=== PATIENT | male | born 1980 | race Caucasian/White ===

== ENCOUNTER 2018-08-21 13:19 | Inpatient (IN) | payer MEDICAID ==
[2018-08-21 13:25] VITALS: BMI 23.7
[2018-08-21 14:07] LABS: BASO # 0.02 K/mm3 (0.0-2.0); BASO % 0.2 % (0.0-3.0); EOS # 0.1 (0.0-0.7); EOS % 0.9 % (1.5-5.0); HEMOGLOBIN 14.6 g/dL (14.0-18.0); LYMPH # 2.4 (1.2-3.4); LYMPH % 21.1 % (22.0-35.0); MEAN CELL VOLUME 95.7 fl (80.0-105.0); MEAN CORPUSCULAR HEMOGLOBIN 31.7 pg (25.0-35.0); MEAN CORPUSCULAR HGB CONC 33.1 g/dl (31.0-37.0); MEAN PLATELET VOLUME 10.3 fl (7.0-11.0); MONO # 1.3 (0.1-0.6); MONO % 11.4 % (1.0-6.0); RBC 4.61 10^6/uL (3.5-6.1); RED CELL DISTRIBUTION WIDTH 12.8 % (11.5-14.5); WHITE BLOOD COUNT 11.3 10^3/uL (4.5-11.0)
[2018-08-21 14:16] LABS: ALB/GLOB RATIO 1.2 (1.1-1.8); ALBUMIN 4.8 g/dL (3.0-4.8); ALT/SGPT 45 U/L (7-56); AST/SGOT 48 U/L (17-59); BLOOD UREA NITROGEN 9 mg/dL (7-21); CALCIUM 9.7 mg/dL (8.4-10.5); GFR NON-AFRICAN AMERICAN > 60
--- NOTE | 2018-08-21 14:26 | CT ---
Date of service: 08/21/2018 PROCEDURE: CT HEAD WITHOUT CONTRAST. HISTORY: ? new onset seizure COMPARISON: None available. TECHNIQUE: Axial computed tomography images were obtained through the head/brain without intravenous contrast. Radiation dose: Total exam DLP = 976.31 mGy-cm. This CT exam was performed using one or more of the following dose reduction techniques: Automated exposure control, adjustment of the mA and/or kV according to patient size, and/or use of iterative reconstruction technique. FINDINGS: HEMORRHAGE: No intracranial hemorrhage. BRAIN: No mass effect or edema. No atrophy or chronic microvascular ischemic changes. VENTRICLES: Unremarkable. No hydrocephalus. CALVARIUM: Unremarkable. PARANASAL SINUSES: Unremarkable as visualized. No significant inflammatory changes. MASTOID AIR CELLS: Unremarkable as visualized. No inflammatory changes. OTHER FINDINGS: None. IMPRESSION: No acute findings
--- NOTE | 2018-08-21 14:30 | ED PDOC ---
Arrival/HPI - General Chief Complaint: Seizure Historian: Patient, Family - History of Present Illness Narrative History of Present Illness (Text): 08/21/18 13:40 38 year old male, with no significant past medical history, presents to the emergency department accompanied by family for evaluation of 2 witnessed seizure at home. Patient had a seizure and landed on top of this toilet which broke. Patient here in the ER is A&Ox3. Patient denies any history of seizure in the past or any family history of seizure. Patient denies any recent travel. Patient denies any pain, fever, chills, chest pain, shortness of breath, nausea, vomiting, diarrhea, urinary incontinence, urinary symptoms, back pain, neck pain, headache, dizziness, or any other complaints. Symptom Onset: Sudden Activities at Onset: Light Context: Home Past Medical History - Provider Review Nursing Documentation Reviewed: Yes - Psychiatric Hx Substance Use: Yes Family/Social History - Physician Review Nursing Documentation Reviewed: Yes Family/Social History: No Known Family HX Smoking Status: Never Smoked Hx Alcohol Use: Yes Frequency of alcohol use: Socially Hx Substance Use: Yes Substance used: marijuana Allergies/Home Meds Allergies/Adverse Reactions: Allergies No Known Allergies Allergy (Verified 08/21/18 13:24) Home Medications: Home Meds Medication Instructions Recorded Confirmed No Known Home Med 08/21/18 08/21/18 Review of Systems - Physician Review All systems were reviewed & negative as marked: Yes - Review of Systems Constitutional: absent: Fevers, Other (chills) Respiratory: absent: SOB Cardiovascular: absent: Chest Pain Gastrointestinal: absent: Diarrhea, Nausea, Vomiting Genitourinary Male: absent: Dysuria, Frequency, Hematuria, Other (urinary incontinence) Musculoskeletal: absent: Back Pain, Neck Pain Neurological: Seizure. absent: Headache, Dizziness Physical Exam Vital Signs Reviewed: Yes Vital Signs Temp Pulse Resp BP Pulse Ox 08/21/18 13:25 98.7 F 92 H 18 136/68 98 Temperature: Afebrile Blood Pressure: Normal Pulse: Regular Respiratory Rate: Normal Appearance: Positive for: Well-Appearing, Non-Toxic, Comfortable Pain Distress: None Mental Status: Positive for: Alert and Oriented X 3 Finger Stick Blood Glucose: 154 - Systems Exam Head: Present: Atraumatic, Normocephalic Pupils: Present: PERRL Extroacular Muscles: Present: EOMI Conjunctiva: Present: Normal Mouth: Present: Moist Mucous Membranes, Other (small abrasion to the tip of tongue) Neck: Present: Normal Range of Motion Respiratory/Chest: Present: Clear to Auscultation, Good Air Exchange. No: Respiratory Distress, Accessory Muscle Use Cardiovascular: Present: Regular Rate and Rhythm, Normal S1, S2. No: Murmurs Abdomen: No: Tenderness, Distention, Peritoneal Signs Back: Present: Normal Inspection Upper Extremity: Present: Normal Inspection. No: Cyanosis, Edema Lower Extremity: Present: Normal Inspection. No: Edema Neurological: Present: GCS=15, Speech Normal Skin: Present: Warm, Dry, Normal Color. No: Rashes Psychiatric: Present: Alert, Oriented x 3, Normal Insight, Normal Concentration Medical Decision Making ED Course and Treatment: 08/21/18 13:40 Impression: 38 year old male presents for evaluation s/p 2 witnessed seizure at home. Patient denies any history of seizure in the past or any family history of seizure. Plan: -- CT Head w/o contrast -- Labs -- Urinalysis -- Reassess and disposition Progress Notes: EKG shows sinus at 92 BPM with normal axis and normal intervals. Interpreted by me. CT head without contrast Dictated by: Michael Clark MD Date Signed: 08/21/181421 Impression: No acute findings 08/21/18 15:20 Patient had a tonic clonic seizure in bed. Patient did not fall to ground. Ativan was given with resolution of seizure. 08/21/18 15:[address] Gonzales neurologist who recommends loading patient with Keppra and to order an MRI of brain w/ contrast. 08/21/18 15:[address] Delacruz who is aware and agrees with the plan. Accepts patient into hospitalist service. - Lab Interpretations Lab Results: Total Bilirubin 0.5 mg/dL (0.2-1.3) 08/21/18 13:30 AST 48 U/L (17-59) 08/21/18 13:30 ALT 45 U/L (7-56) 08/21/18 13:30 Alkaline Phosphatase 78 U/L (38-126) 08/21/18 13:30 Total Protein 8.7 g/dL (5.8-8.3) H 08/21/18 13:30 Albumin 4.8 g/dL (3.0-4.8) 08/21/18 13:30 Globulin 3.9 gm/dL 08/21/18 13:30 Albumin/Globulin Ratio 1.2 (1.1-1.8) 08/21/18 13:30 I have reviewed the lab results: Yes - RAD Interpretation Radiology Orders: 08/21/18 13:50 HEAD W/O CONTRAST [CT] Stat Timber Skidder: Radiologist - Scribe Statement The provider has reviewed the documentation as recorded by the Linda Vitale Provider Scribe Attestation: All medical record entries made by the Linda were at my direction and personally dictated by me. I have reviewed the chart and agree that the record accurately reflects my personal performance of the history, physical exam, medical decision making, and the department course for this patient. I have also personally directed, reviewed, and agree with the discharge instructions and disposition. Disposition/Present on Arrival - Present on Arrival Any Indicators Present on Arrival: No History of DVT/PE: No History of Uncontrolled Diabetes: No Urinary Catheter: No History of Decub. Ulcer: No History Surgical Site Infection Following: None - Disposition Have Diagnosis and Disposition been Completed?: Yes Diagnosis: Witnessed seizure-like activity Disposition: HOSPITALIZED Disposition Time: 15:15 Condition: FAIR
[2018-08-21 14:57] LABS: PH,URINE 6.5 (4.7-8.0); URINE BILIRUBIN NEGATIVE (NEGATIVE); URINE BLOOD NEGATIVE (NEGATIVE); URINE GLUCOSE (UA) NEGATIVE (NEGATIVE); URINE LEUKOCYTE ESTERASE NEGATIVE Leu/uL (NEGATIVE); URINE PROTEIN TRACE mg/dL (<30 mg/dL); URINE UROBILINOGEN 0.2 E.U./dL (<1 E.U./dL)
[2018-08-21 15:01] LABS: URINE APPEARANCE CLEAR (CLEAR); URINE COLOR YELLOW (YELLOW)
[2018-08-21 15:04] LABS: URINE BACTERIA FEW /hpf; URINE WBC 0 - 2 /hpf (0-6)
[2018-08-21] MEDS ORDERED: levETIRAcetam 1,000 MG in Sodium Chloride 0.9% 100 ML IVPB STA (15:27)
[2018-08-21] MEDS ORDERED: levETIRAcetam 1000mg/100ml NS 100 ML IV ONE (15:30)
[2018-08-21 15:47] LABS: BARBITURATES, UR NEGATIVE (NEGATIVE); BENZODIAZEPINES, UR NEGATIVE (NEGATIVE); OPIATES, UR NEGATIVE (NEGATIVE); PHENCYCLIDINE, UR NEGATIVE (NEGATIVE)
--- NOTE | 2018-08-21 16:06 | CP.PCM.HP ---
<Ruthann Neves - Last Filed: 08/21/18 17:41> History of Present Illness - History of Present Illness History of Present Illness: Resident History & Physical for Hospitalist Service Patient is a 38 year old male with no significant past medical history presenting with chief complaint of seizures. History was obtained from medical records and at bedside due to patient's altered mental status. Per patient was not complaining of any symptoms throughout the morning. In the afternoon, patient was noted to have tonic movements before falling backwards and losing consciousness. Upon regaining consciousness, patient exhibited slurred speech and was unable to recall what had happened. Patient subsequently had another seizure of same nature before being brought to ED. In the ED patient had third seizure and was given 4 mg Ativan and 1 gram of Keppra. Patient has no previous history of seizures and does not take any medications at home. Last followup with PMD was a year prior and there were no medical concerns reported at that time. PMH: none PSH: none SHx: denies alcohol, cigar and marijuana use for past 15 years FHx: HTN Allergies: NKDA PMD: [facility] Present on Admission - Present on Admission Any Indicators Present on Admission: No Review of Systems - Review of Systems All systems: reviewed and no additional remarkable complaints except (as stated in HPI) Past Patient History - Past Social History Smoking Status: Never Smoked - PSYCHIATRIC Hx Substance Use: Yes - SURGICAL HISTORY Hx Surgeries: No Meds Allergies/Adverse Reactions: Allergies Allergy/AdvReac Type Severity Reaction Status Date / Time No Known Allergies Allergy Verified 08/21/18 21:47 Physical Exam - Constitutional Appears: Non-toxic, No Acute Distress - Head Exam Head Exam: ATRAUMATIC, NORMOCEPHALIC - Eye Exam Eye Exam: EOMI, Normal appearance, PERRL - ENT Exam ENT Exam: Mucous Membranes Moist - Respiratory Exam Respiratory Exam: Clear to Auscultation Bilateral, NORMAL BREATHING PATTERN. absent: Accessory Muscle Use, Rales, Rhonchi, Wheezes, Respiratory Distress - Cardiovascular Exam Cardiovascular Exam: Tachycardia, RRR, +S1, +S2. absent: Systolic Murmur - GI/Abdominal Exam GI & Abdominal Exam: Normal Bowel Sounds, Soft. absent: Distended, Firm, Guarding, Rebound, Rigid, Tenderness - Extremities Exam Extremities exam: Positive for: normal capillary refill, normal inspection, pedal pulses present. Negative for: pedal edema, tenderness - Neurological Exam Neurological exam: Altered - Skin Skin Exam: Dry, Intact, Normal Color, Warm Results - Vital Signs Recent Vital Signs: Last Vital Signs Temp 98.7 F 08/21/18 13:25 Pulse 107 H 08/21/18 15:33 Resp 20 08/21/18 15:33 BP 114/69 08/21/18 15:33 Pulse Ox 99 08/21/18 15:33 - Labs Result Diagrams: 08/21/18 13:30 08/21/18 13:30 Labs: Laboratory Results - last 24 hr 08/21/18 08/21/18 08/21/18 13:30 13:30 14:30 WBC 11.3 H RBC 4.61 Hgb 14.6 Hct 44.1 MCV 95.7 MCH 31.7 MCHC 33.1 RDW 12.8 Plt Count 276 MPV 10.3 Neut % (Auto) 66.4 Lymph % (Auto) 21.1 L [place] % (Auto) 11.4 H Eos % (Auto) 0.9 L Baso % (Auto) 0.2 Lymph # (Auto) 2.4 [place] # (Auto) 1.3 H Eos # (Auto) 0.1 Baso # (Auto) 0.02 Absolute Neuts (auto) 7.49 H Sodium 139 Potassium 3.8 Chloride 100 Carbon Dioxide 23 Anion Gap 20 BUN 9 Creatinine 0.9 Est GFR ( Amer) > 60 Est GFR (Non-Af Amer) > 60 Random Glucose 148 H Calcium 9.7 Total Bilirubin 0.5 AST 48 ALT 45 Alkaline Phosphatase 78 Total Protein 8.7 H Albumin 4.8 Globulin 3.9 Albumin/Globulin Ratio 1.2 Urine Color Urine Appearance Urine pH Ur Specific [place] Urine Protein Urine Glucose (UA) Urine Ketones Urine Blood Urine Nitrate Urine Bilirubin Urine Urobilinogen Ur Leukocyte Esterase Urine RBC Urine WBC Ur Epithelial Cells Urine Bacteria Urine Opiates Screen Negative Urine Methadone Screen Negative Ur Barbiturates Screen Negative Ur Phencyclidine Scrn Negative Ur Amphetamines Screen Negative U Benzodiazepines Scrn Negative U Oth Cocaine Metabols Negative U Cannabinoids Screen Positive H 08/21/18 14:30 WBC RBC Hgb Hct MCV MCH MCHC RDW Plt Count MPV Neut % (Auto) Lymph % (Auto) [place] % (Auto) Eos % (Auto) Baso % (Auto) Lymph # (Auto) [place] # (Auto) Eos # (Auto) Baso # (Auto) Absolute Neuts (auto) Sodium Potassium Chloride Carbon Dioxide Anion Gap BUN Creatinine Est GFR ( Amer) Est GFR (Non-Af Amer) Random Glucose Calcium Total Bilirubin AST ALT Alkaline Phosphatase Total Protein Albumin Globulin Albumin/Globulin Ratio Urine Color Yellow Urine Appearance Clear Urine pH 6.5 Ur Specific [place] 1.025 Urine Protein Trace H Urine Glucose (UA) Negative Urine Ketones Negative Urine Blood Negative Urine Nitrate Negative Urine Bilirubin Negative Urine Urobilinogen 0.2 Ur Leukocyte Esterase Negative Urine RBC None Urine WBC 0 - 2 Ur Epithelial Cells None Urine Bacteria Few Urine Opiates Screen Urine Methadone Screen Ur Barbiturates Screen Ur Phencyclidine Scrn Ur Amphetamines Screen U Benzodiazepines Scrn U Oth Cocaine Metabols U Cannabinoids Screen Assessment & Plan - Assessment and Plan (Free Text) Assessment: Patient is a 38 year old male with no significant past medical history presenting with chief complaint of seizures. Plan: Seizures - s/p ativan and keppra in ED - Head CT shows no acute findings - case discussed with neurology Dr. Gonzales - continue Keppra 500 mg IV Q12 as per neurology recs - Ativan 2 mg IVP Q3H PRN - NPO - Aspiration, seizure precautions - followup brain MRI - will keep low threshold for intubating patient and transferring to ICU PPX - Yesenia Madison PGY-1 - Date & Time Date: 08/21/18 Time: 16:06 <João Delacruz - Last Filed: 08/22/18 15:09> Results - Vital Signs Recent Vital Signs: Last Vital Signs Temp 98.3 F 08/22/18 06:00 Pulse 86 08/22/18 14:00 Resp 18 08/22/18 09:00 BP 109/66 08/22/18 09:00 Pulse Ox 97 08/22/18 09:00 - Labs Result Diagrams: 08/22/18 06:20 08/22/18 06:20 Labs: Laboratory Results - last 24 hr 08/21/18 08/21/18 08/21/18 13:32 14:30 14:30 WBC RBC Hgb Hct MCV MCH MCHC RDW Plt Count MPV Neut % (Auto) Lymph % (Auto) [place] % (Auto) Eos % (Auto) Baso % (Auto) Lymph # (Auto) [place] # (Auto) Eos # (Auto) Baso # (Auto) Absolute Neuts (auto) Sodium Potassium Chloride Carbon Dioxide Anion Gap BUN Creatinine Est GFR ( Amer) Est GFR (Non-Af Amer) POC Glucose (mg/dL) 154 H Random Glucose Hemoglobin A1c Calcium Phosphorus Magnesium Total Bilirubin AST ALT Alkaline Phosphatase Total Creatine Kinase Total Protein Albumin Globulin Albumin/Globulin Ratio Triglycerides Cholesterol LDL Cholesterol Direct HDL Cholesterol TSH 3rd Generation Urine Color Yellow Urine Appearance Clear Urine pH 6.5 Ur Specific [place] 1.025 Urine Protein Trace H Urine Glucose (UA) Negative Urine Ketones Negative Urine Blood Negative Urine Nitrate Negative Urine Bilirubin Negative Urine Urobilinogen 0.2 Ur Leukocyte Esterase Negative Urine RBC None Urine WBC 0 - 2 Ur Epithelial Cells None Urine Bacteria Few Urine Opiates Screen Negative Urine Methadone Screen Negative Ur Barbiturates Screen Negative Ur Phencyclidine Scrn Negative Ur Amphetamines Screen Negative U Benzodiazepines Scrn Negative U Oth Cocaine Metabols Negative U Cannabinoids Screen Positive H Alcohol, Quantitative 08/21/18 08/21/18 08/21/18 18:00 18:00 18:00 WBC RBC Hgb Hct MCV MCH MCHC RDW Plt Count MPV Neut % (Auto) Lymph % (Auto) [place] % (Auto) Eos % (Auto) Baso % (Auto) Lymph # (Auto) [place] # (Auto) Eos # (Auto) Baso # (Auto) Absolute Neuts (auto) Sodium Potassium Chloride Carbon Dioxide Anion Gap BUN Creatinine Est GFR ( Amer) Est GFR (Non-Af Amer) POC Glucose (mg/dL) Random Glucose Hemoglobin A1c 5.8 Calcium Phosphorus 3.1 Magnesium 2.0 Total Bilirubin AST ALT Alkaline Phosphatase Total Creatine Kinase 105 Total Protein Albumin Globulin Albumin/Globulin Ratio Triglycerides Cholesterol LDL Cholesterol Direct HDL Cholesterol TSH 3rd Generation 1.69 Urine Color Urine Appearance Urine pH Ur Specific [place] Urine Protein Urine Glucose (UA) Urine Ketones Urine Blood Urine Nitrate Urine Bilirubin Urine Urobilinogen Ur Leukocyte Esterase Urine RBC Urine WBC Ur Epithelial Cells Urine Bacteria Urine Opiates Screen Urine Methadone Screen Ur Barbiturates Screen Ur Phencyclidine Scrn Ur Amphetamines Screen U Benzodiazepines Scrn U Oth Cocaine Metabols U Cannabinoids Screen Alcohol, Quantitative < 10 08/22/18 08/22/18 06:20 06:20 WBC 13.5 H RBC 4.14 Hgb 12.7 L Hct 38.9 L MCV 94.0 MCH 30.7 MCHC 32.6 RDW 13.0 Plt Count 231 MPV 10.1 Neut % (Auto) 76.1 H Lymph % (Auto) 11.9 L [place] % (Auto) 11.4 H Eos % (Auto) 0.4 L Baso % (Auto) 0.2 Lymph # (Auto) 1.6 [place] # (Auto) 1.5 H Eos # (Auto) 0.1 Baso # (Auto) 0.03 Absolute Neuts (auto) 10.26 H Sodium 140 Potassium 3.5 L Chloride 108 H Carbon Dioxide 25 Anion Gap 11 BUN 10 Creatinine 0.8 Est GFR ( Amer) > 60 Est GFR (Non-Af Amer) > 60 POC Glucose (mg/dL) Random Glucose 89 Hemoglobin A1c Calcium 8.8 Phosphorus 3.1 Magnesium 2.1 Total Bilirubin 0.7 AST 50 ALT 53 Alkaline Phosphatase 61 Total Creatine Kinase Total Protein 7.1 Albumin 3.7 Globulin 3.3 Albumin/Globulin Ratio 1.1 Triglycerides 43 Cholesterol 132 LDL Cholesterol Direct 101 HDL Cholesterol 21 L TSH 3rd Generation Urine Color Urine Appearance Urine pH Ur Specific [place] Urine Protein Urine Glucose (UA) Urine Ketones Urine Blood Urine Nitrate Urine Bilirubin Urine Urobilinogen Ur Leukocyte Esterase Urine RBC Urine WBC Ur Epithelial Cells Urine Bacteria Urine Opiates Screen Urine Methadone Screen Ur Barbiturates Screen Ur Phencyclidine Scrn Ur Amphetamines Screen U Benzodiazepines Scrn U Oth Cocaine Metabols U Cannabinoids Screen Alcohol, Quantitative Attending/Attestation - Attestation I have personally seen and examined this patient.: Yes I have fully participated in the care of the patient.: Yes I have reviewed all pertinent clinical information: Yes Notes (Text): 08/22/18 15:00 Attending note; Patient seen and examined with resident in ER. Patient is sedated with IV Ativan. Patient's by the bedside. Not in any acute distress. Patient is moving all extremities. Pupils equal and reactive. Patient is a 38 year old male with no significant past medical history presenting with chief complaint of seizures. History was obtained from medical records and at bedside due to patient's altered mental status. 1. Recurrent seizures; according to the family patient has No history of seizures. Etiology unknown. CT head is negative. Currently on IV Keppra. Started on IV Ativan as needed. Patient is currently sedated with IV Ativan. No focal deficit noted. Monitor closely. 2. Urine drug screen is positive for marijuana. drug Abuse cessation is strongly advised. 3. Neurology Evaluation appreciated. MRI ordered. Video EEG recommended. Monitor closely. Patient will be referred to PMD at [facility].
--- NOTE | 2018-08-21 18:26 | CP.PCM.CON ---
History of Present Illness - History of Present Illness History of Present Illness: Neurology consult dictated. 38 yr old male with no past medical history of epilepsy, who presented today with two discrete, preceded by aura, generalized tonic clonic siezures that were witnessed by staff. THere was no alcohol or drug use, or sleep deprivation noted prior to this event. No prior histoyr. NO history of hemorrhage or stroke. Patient was loaded with Keppra and MRI Brain with maribell ordered. Plan: 1. MRi Brain with maribell 2. VEEG after MRI 3. Continue Keppra at 500 mg bid THank you Neurology Past Patient History - Past Social History Smoking Status: Never Smoked - PSYCHIATRIC Hx Substance Use: Yes - SURGICAL HISTORY Hx Surgeries: No Meds Allergies/Adverse Reactions: Allergies Allergy/AdvReac Type Severity Reaction Status Date / Time No Known Allergies Allergy Verified 08/21/18 13:24 - Medications Medications: Current Medications Levetiracetam (Keppra 500mg Ivpb) 500 mg in 100 mls @ 400 mls/hr IVPB Q12 LAURA Sodium Chloride (Sodium Chloride 0.9%) 1,000 mls @ 115 mls/hr IV .[id number] LAURA Lorazepam (Ativan) 2 mg IVP Q3H PRN; Protocol PRN Reason: Seizure activity Ondansetron HCl (Zofran Inj) 4 mg IVP Q4H PRN PRN Reason: Nausea/Vomiting Pantoprazole Sodium (Protonix Inj) 40 mg IVP DAILY LAURA Results - Vital Signs Recent Vital Signs: Last Vital Signs Temp 98.7 F 08/21/18 13:25 Pulse 98 H 08/21/18 17:00 Resp 18 08/21/18 17:00 BP 129/88 08/21/18 17:00 Pulse Ox 99 08/21/18 17:00 - Labs Result Diagrams: 08/21/18 13:30 08/21/18 13:30 Labs: Laboratory Results - last 24 hr 08/21/18 08/21/18 08/21/18 13:30 13:30 13:32 WBC 11.3 H RBC 4.61 Hgb 14.6 Hct 44.1 MCV 95.7 MCH 31.7 MCHC 33.1 RDW 12.8 Plt Count 276 MPV 10.3 Neut % (Auto) 66.4 Lymph % (Auto) 21.1 L [place] % (Auto) 11.4 H Eos % (Auto) 0.9 L Baso % (Auto) 0.2 Lymph # (Auto) 2.4 [place] # (Auto) 1.3 H Eos # (Auto) 0.1 Baso # (Auto) 0.02 Absolute Neuts (auto) 7.49 H Sodium 139 Potassium 3.8 Chloride 100 Carbon Dioxide 23 Anion Gap 20 BUN 9 Creatinine 0.9 Est GFR ( Amer) > 60 Est GFR (Non-Af Amer) > 60 POC Glucose (mg/dL) 154 H Random Glucose 148 H Calcium 9.7 Total Bilirubin 0.5 AST 48 ALT 45 Alkaline Phosphatase 78 Total Protein 8.7 H Albumin 4.8 Globulin 3.9 Albumin/Globulin Ratio 1.2 Urine Color Urine Appearance Urine pH Ur Specific [place] Urine Protein Urine Glucose (UA) Urine Ketones Urine Blood Urine Nitrate Urine Bilirubin Urine Urobilinogen Ur Leukocyte Esterase Urine RBC Urine WBC Ur Epithelial Cells Urine Bacteria Urine Opiates Screen Urine Methadone Screen Ur Barbiturates Screen Ur Phencyclidine Scrn Ur Amphetamines Screen U Benzodiazepines Scrn U Oth Cocaine Metabols U Cannabinoids Screen 08/21/18 08/21/18 14:30 14:30 WBC RBC Hgb Hct MCV MCH MCHC RDW Plt Count MPV Neut % (Auto) Lymph % (Auto) [place] % (Auto) Eos % (Auto) Baso % (Auto) Lymph # (Auto) [place] # (Auto) Eos # (Auto) Baso # (Auto) Absolute Neuts (auto) Sodium Potassium Chloride Carbon Dioxide Anion Gap BUN Creatinine Est GFR ( Amer) Est GFR (Non-Af Amer) POC Glucose (mg/dL) Random Glucose Calcium Total Bilirubin AST ALT Alkaline Phosphatase Total Protein Albumin Globulin Albumin/Globulin Ratio Urine Color Yellow Urine Appearance Clear Urine pH 6.5 Ur Specific [place] 1.025 Urine Protein Trace H Urine Glucose (UA) Negative Urine Ketones Negative Urine Blood Negative Urine Nitrate Negative Urine Bilirubin Negative Urine Urobilinogen 0.2 Ur Leukocyte Esterase Negative Urine RBC None Urine WBC 0 - 2 Ur Epithelial Cells None Urine Bacteria Few Urine Opiates Screen Negative Urine Methadone Screen Negative Ur Barbiturates Screen Negative Ur Phencyclidine Scrn Negative Ur Amphetamines Screen Negative U Benzodiazepines Scrn Negative U Oth Cocaine Metabols Negative U Cannabinoids Screen Positive H
[2018-08-21] MEDS: Sodium Chloride 0.9% 1,000 ML IV SCH (18:31)
[2018-08-21] MEDS: levETIRAcetam 500mg IVPB 500 MG/100 ML BAG IVPB SCH (21:44)
[2018-08-21] MEDS ORDERED: levETIRAcetam 500 MG in Sodium Chloride 0.9% 100 ML IVPB SCH (22:00)
--- NOTE | 2018-08-21 22:22 | CARD ---
APPROVED REPORT Date of service: 08/21/2018 EKG Measurement Heart [id number] <Conclusion> Normal sinus rhythm Normal ECG
[2018-08-21] MEDS ORDERED: Influenza Vaccine 60 mcg/0.5 mL SYR (4YR UP) IM ONE (22:51)
[2018-08-21] MEDS ORDERED: Pneumococcal 23-Valent Vaccine IM ONE (22:51)
[2018-08-22] MEDS: Sodium Chloride 0.9% 1,000 ML IV SCH (01:50)
--- NOTE | 2018-08-22 07:04 | CP.PCM.PN ---
<Ruthann Neves L - Last Filed: 08/22/18 13:03> Subjective - Date & Time of Evaluation Date of Evaluation: 08/22/18 Time of Evaluation: 07:02 - Subjective Subjective: Resident Progress Note for Hospitalist Service Patient examined at bedside. No acute events overnight. Patient is AAOx3, responding to questions appropriately and following commands. States he has right sided back pain and generalized weakness. Denies fevers, chills, headache, dizziness, vision or auditory changes, nausea, vomiting. Objective - Vital Signs/Intake and Output Vital Signs (last 24 hours): Temp Pulse Resp BP Pulse Ox 98.3 F 85 20 127/77 97 08/22/18 06:00 08/22/18 06:00 08/22/18 06:00 08/22/18 06:00 08/22/18 06:00 Intake and Output: 08/22/18 08/22/18 06:59 18:59 Intake Total 1380 Balance 1380 - Medications Medications: Current Medications Levetiracetam (Keppra 500mg Ivpb) 500 mg in 100 mls @ 400 mls/hr IVPB Q12 [facility] Last Admin: 08/21/18 21:44 Dose: 400 mls/hr Sodium Chloride (Sodium Chloride 0.9%) 1,000 mls @ 115 mls/hr IV .Q8H42M [facility] Last Admin: 08/22/18 01:50 Dose: Not Given Lorazepam (Ativan) 2 mg IVP Q3H PRN; Protocol PRN Reason: Seizure activity Ondansetron HCl (Zofran Inj) 4 mg IVP Q4H PRN PRN Reason: Nausea/Vomiting Pantoprazole Sodium (Protonix Inj) 40 mg IVP DAILY [facility] - Labs Labs: 08/21/18 13:30 08/21/18 13:30 - Constitutional Appears: Non-toxic, No Acute Distress - Head Exam Head Exam: ATRAUMATIC, NORMOCEPHALIC - Eye Exam Eye Exam: EOMI, Normal appearance, PERRL - ENT Exam ENT Exam: Mucous Membranes Moist Additional comments: tongue bites - Respiratory Exam Respiratory Exam: Clear to Auscultation Bilateral, NORMAL BREATHING PATTERN. absent: Accessory Muscle Use, Rales, Rhonchi, Wheezes, Respiratory Distress - Cardiovascular Exam Cardiovascular Exam: RRR, +S1, +S2. absent: Systolic Murmur - GI/Abdominal Exam GI & Abdominal Exam: Normal Bowel Sounds, Soft. absent: Distended, Firm, Guarding, Rebound, Rigid, Tenderness - Extremities Exam Extremities exam: Positive for: normal capillary refill, normal inspection, pedal pulses present. Negative for: pedal edema, tenderness - Neurological Exam Neurological exam: Alert, Oriented x3, CN II-XII intact, Muscle Strength intact - Skin Skin Exam: Dry, Intact, Normal Color, Warm Assessment and Plan - Assessment and Plan (Free Text) Assessment: Patient is a 38 year old male with no significant past medical history presenting with chief complaint of seizures. Plan: Seizures - s/p ativan and keppra in ED - Head CT shows no acute findings - case discussed with neurology Dr. Gonzales - continue Keppra 500 mg IV Q12 as per neurology recs - Ativan 2 mg IVP Q3H PRN - diet advanced - Aspiration, seizure precautions - Brain MRI unremarkable - followup VEEG - will keep low threshold for intubating patient and transferring to ICU Leukocytosis - likely reactive - afebrile - UA unremarkable Substance abuse - UDS positive for cannabinoids - alcohol level <10 - cessation counseling Hypokalemia - monitor and replete PRN Back pain - Lidoderm patch PRN - Tylenol PRN PPX - SCDs, Protonix Case reviewed with Dr. Jayme Neves PGY-1 <João Delacruz - Last Filed: 08/22/18 15:17> Objective - Vital Signs/Intake and Output Vital Signs (last 24 hours): Temp Pulse Resp BP Pulse Ox 98.3 F 86 18 109/66 97 08/22/18 06:00 08/22/18 14:00 08/22/18 09:00 08/22/18 09:00 08/22/18 09:00 Intake and Output: 08/22/18 08/22/18 06:59 18:59 Intake Total 1380 Output Total 400 Balance 980 - Medications Medications: Current Medications Acetaminophen (Tylenol 325mg Tab) 650 mg PO Q6H PRN PRN Reason: Pain, Mild (1-3) Levetiracetam (Keppra 500mg Ivpb) 500 mg in 100 mls @ 400 mls/hr IVPB Q12 [facility] Last Admin: 08/22/18 10:46 Dose: 400 mls/hr Sodium Chloride (Sodium Chloride 0.9%) 1,000 mls @ 115 mls/hr IV .Q8H42M [facility] Last Admin: 08/22/18 01:50 Dose: Not Given Lidocaine (Lidoderm) 1 ea TD DAILY [facility] Last Admin: 08/22/18 10:51 Dose: 1 ea Lorazepam (Ativan) 2 mg IVP Q3H PRN; Protocol PRN Reason: Seizure activity Ondansetron HCl (Zofran Inj) 4 mg IVP Q4H PRN PRN Reason: Nausea/Vomiting Pantoprazole Sodium (Protonix Inj) 40 mg IVP DAILY [facility] Last Admin: 08/22/18 10:45 Dose: 40 mg - Labs Labs: 08/22/18 06:20 08/22/18 06:20 Attending/Attestation - Attestation I have personally seen and examined this patient.: Yes I have fully participated in the care of the patient.: Yes I have reviewed all pertinent clinical information, including history, physical exam and plan: Yes Notes (Text): 08/22/18 15:10 Attending note; Patient seen and examined with resident. Patient is sitting in the chair. Alert and awake. Complaining of some back discomfort. Denies any history of seizures. Does not take any medications. Patient states that he uses opiates from the street. Patient is moving all extremities. Patient is a 38 year old male with no significant past medical history presenting with chief complaint of seizures. History was obtained from medical records and at bedside due to patient's altered mental status. 1. Seizures; Currently seizure free. Currently on Keppra. CT head is negative. MRI pending. IV Ativan as needed. 2. Urine drug screen is positive for marijuana. drug Abuse cessation is strongly advised. 3. Neurology Evaluation appreciated. Video EEG pending. Monitor closely. Upon discharge the patient will follow up with PMD at [facility].
[2018-08-22 07:09] LABS: BASO # 0.03 K/mm3 (0.0-2.0); BASO % 0.2 % (0.0-3.0); EOS # 0.1 (0.0-0.7); EOS % 0.4 % (1.5-5.0); HEMOGLOBIN 12.7 g/dL (14.0-18.0); LYMPH # 1.6 (1.2-3.4); LYMPH % 11.9 % (22.0-35.0); MEAN CORPUSCULAR HEMOGLOBIN 30.7 pg (25.0-35.0); MEAN CORPUSCULAR HGB CONC 32.6 g/dl (31.0-37.0); MEAN PLATELET VOLUME 10.1 fl (7.0-11.0); MONO # 1.5 (0.1-0.6); MONO % 11.4 % (1.0-6.0); RBC 4.14 10^6/uL (3.5-6.1); WHITE BLOOD COUNT 13.5 10^3/uL (4.5-11.0)
[2018-08-22 07:33] LABS: LDL CHOLESTEROL 101 mg/dL (0-129)
[2018-08-22 07:53] LABS: ALB/GLOB RATIO 1.1 (1.1-1.8); ALBUMIN 3.7 g/dL (3.0-4.8); ALT/SGPT 53 U/L (7-56); AST/SGOT 50 U/L (17-59); BLOOD UREA NITROGEN 10 mg/dL (7-21); CALCIUM 8.8 mg/dL (8.4-10.5); GFR NON-AFRICAN AMERICAN > 60; HDL CHOLESTEROL 21 mg/dL (29-60)
[2018-08-22] MEDS ORDERED: Potassium Chloride 20 mEq ER Tab PO STA (08:04)
[2018-08-22] MEDS ORDERED: Lidocaine 5% Patch TD SCH (10:00)
[2018-08-22] MEDS: levETIRAcetam 500mg IVPB 500 MG/100 ML BAG IVPB SCH (10:46)
[2018-08-22] MEDS: Lidocaine 5% Patch TD SCH ×2 (10:51→21:50)
[2018-08-22] MEDS ORDERED: Gadodiamide 287 MG/ML VIAL (15ML) IV ONE (11:52)
--- NOTE | 2018-08-22 12:26 | MRI ---
Date of service: 08/22/2018 PROCEDURE: MRI BRAIN WITH AND WITHOUT CONTRAST HISTORY: multiple seizures ? mass COMPARISON: CT 08/21/2018 TECHNIQUE: Multiplanar, multisequence MR images of the brain were obtained with and without intravenous contrast enhancement. 15 cc of Omniscan FINDINGS: HEMORRHAGE: None DWI: No evidence of an acute or early subacute infarction. BRAIN PARENCHYMA: No mass,mass effect or edema. No atrophy or chronic microvascular ischemic changes. ENHANCEMENT: No abnormal intracranial enhancement. VENTRICLES: Unremarkable. No hydrocephalus. CRANIUM: Unremarkable. ORBITS: Grossly unremarkable. PARANASAL SINUSES/MASTOIDS: Clear VASCULAR SYSTEM: Skull base flow voids intact. OTHER FINDINGS: None . IMPRESSION: Unremarkable pre and post contrast enhanced MRI of the brain.
[2018-08-22 13:34] VITALS: RESP 18
--- NOTE | 2018-08-22 21:42 | CP.PCM.PCO ---
<Jermaine Vela - Last Filed: 08/22/18 21:41> Addendum Addendum: PGY1 House Doc Note Patient has complaint of lower back pain. Tylenol prn order did not help. Will administer lidoderm patch with motrin 600mg PO at this time. <Eber Harrison - Last Filed: 08/23/18 19:20> Attending/Attestation - Attestation I have personally seen and examined this patient.: No I have fully participated in the care of the patient.: No I have reviewed all pertinent clinical information: No
[2018-08-23 07:01] LABS: ALB/GLOB RATIO 1.1 (1.1-1.8); ALBUMIN 3.9 g/dL (3.0-4.8); ALT/SGPT 54 U/L (7-56); AST/SGOT 67 U/L (17-59); BASO # 0.02 K/mm3 (0.0-2.0); BASO % 0.3 % (0.0-3.0); BLOOD UREA NITROGEN 12 mg/dL (7-21); CALCIUM 9.2 mg/dL (8.4-10.5); EOS # 0.2 (0.0-0.7); EOS % 2.8 % (1.5-5.0); GFR NON-AFRICAN AMERICAN > 60; HEMOGLOBIN 12.9 g/dL (14.0-18.0); LYMPH # 1.7 (1.2-3.4); LYMPH % 24.1 % (22.0-35.0); MEAN CELL VOLUME 93.9 fl (80.0-105.0); MEAN CORPUSCULAR HEMOGLOBIN 31.2 pg (25.0-35.0); MEAN CORPUSCULAR HGB CONC 33.2 g/dl (31.0-37.0); MEAN PLATELET VOLUME 9.9 fl (7.0-11.0); MONO # 1.2 (0.1-0.6); MONO % 16.5 % (1.0-6.0); RBC 4.13 10^6/uL (3.5-6.1); RED CELL DISTRIBUTION WIDTH 12.8 % (11.5-14.5); WHITE BLOOD COUNT 7.1 10^3/uL (4.5-11.0)
[2018-08-23 07:02] VITALS: TEMP 98.2
[2018-08-23] MEDS ORDERED: Pantoprazole 40 mg EC Tab PO SCH (07:30)
--- NOTE | 2018-08-23 07:38 | PCM.EEG ---
Electroencephalogram Report - Electroencephalogram Report Procedure Date: 08/22/18 Medication: Keppra Interpretation: Technical Information: This was a 16 -channel EEG, 1-channel EKG routine EEG performed using an [employer] machine. Electrodes were applied using the 10/20 international placement system. Start; 13;17 End; 14;10 total' 108 Clinical Information: epilepsy During resting wakefulness there was a symmetric posterior dominant rhythm at 8.5-9.5 Hz, 30-50 uV, which was reactive to eye opening and closing. Drowsiness (13;31) was associated with fragmentation of the posterior dominant rhythm and with slow roving eye movements. Light sleep (13;48) was recorded and was characterized by central vertex waves, sleep spindles, and bilateral theta slowing. Hyperventilation was performed no changes were seen. Photic stimulation was performed and there were no changes on the record. Focal abnormality; none ECG was associated with a normal sinus rhythm. Impression: This is a normal awake drowsy and sleep electroencephalogram.
[2018-08-23 09:09] VITALS: BP 131/79; PULSE 67; O2SAT 98
[2018-08-23] MEDS: Lidocaine 5% Patch TD SCH ×2 (10:01→10:02)
--- NOTE | 2018-08-23 12:26 | CP.PCM.DIS ---
<Nehemiah Hammond - Last Filed: 08/23/18 12:16> Provider - Provider Date of Admission: 08/21/18 15:50 Attending physician: João Delacruz MD Primary care physician: [facility] Consults: 08/21/18 16:59 Neurology Consult Routine Comment: Consulting Provider: Gunnar Gonzales Consulting Physician: Gunnar Gonzales Reason for Consult: new onset seizures 08/21/18 22:51 Nursing Referral for Wound Care Routine Comment: Physician Instructions: Reason For Exam: EVALUATION Time Spent in preparation of Discharge (in minutes): 40 Diagnosis - Discharge Diagnosis (1) Witnessed seizure-like activity Status: Resolved Hospital Course - Lab Results Lab Results: Most Recent Lab Values WBC 7.1 10^3/uL (4.5-11.0) D 08/23/18 06:00 RBC 4.13 10^6/uL (3.5-6.1) 08/23/18 06:00 Hgb 12.9 g/dL (14.0-18.0) L 08/23/18 06:00 Hct 38.8 % (42.0-52.0) L 08/23/18 06:00 MCV 93.9 fl (80.0-105.0) 08/23/18 06:00 MCH 31.2 pg (25.0-35.0) 08/23/18 06:00 MCHC 33.2 g/dl (31.0-37.0) 08/23/18 06:00 RDW 12.8 % (11.5-14.5) 08/23/18 06:00 Plt Count 227 10^3/uL (120.0-450.0) 08/23/18 06:00 MPV 9.9 fl (7.0-11.0) 08/23/18 06:00 Neut % (Auto) 56.3 % (50.0-68.0) 08/23/18 06:00 Lymph % (Auto) 24.1 % (22.0-35.0) 08/23/18 06:00 Nuckolls % (Auto) 16.5 % (1.0-6.0) H 08/23/18 06:00 Eos % (Auto) 2.8 % (1.5-5.0) 08/23/18 06:00 Baso % (Auto) 0.3 % (0.0-3.0) 08/23/18 06:00 Lymph # (Auto) 1.7 (1.2-3.4) 08/23/18 06:00 Nuckolls # (Auto) 1.2 (0.1-0.6) H 08/23/18 06:00 Eos # (Auto) 0.2 (0.0-0.7) 08/23/18 06:00 Baso # (Auto) 0.02 K/mm3 (0.0-2.0) 08/23/18 06:00 Absolute Neuts (auto) 3.99 (1.4-6.5) 08/23/18 06:00 Sodium 140 mmol/L (132-148) 08/23/18 06:00 Potassium 4.2 mmol/L (3.6-5.0) 08/23/18 06:00 Chloride 107 mmol/L (98-107) 08/23/18 06:00 Carbon Dioxide 28 mmol/L (21-33) 08/23/18 06:00 Anion Gap 9 (10-20) L 08/23/18 06:00 BUN 12 mg/dL (7-21) 08/23/18 06:00 Creatinine 0.8 mg/dl (0.8-1.5) 08/23/18 06:00 Est GFR ( Amer) > 60 08/23/18 06:00 Est GFR (Non-Af Amer) > 60 08/23/18 06:00 POC Glucose (mg/dL) 154 mg/dL (65-110) H 08/21/18 13:32 Random Glucose 97 mg/dL (70-110) 08/23/18 06:00 Hemoglobin A1c 5.8 % (4.2-6.5) 08/21/18 18:00 Calcium 9.2 mg/dL (8.4-10.5) 08/23/18 06:00 Phosphorus 3.2 mg/dL (2.5-4.5) 08/23/18 06:00 Magnesium 2.0 mg/dL (1.7-2.2) 08/23/18 06:00 Total Bilirubin 0.7 mg/dL (0.2-1.3) 08/23/18 06:00 AST 67 U/L (17-59) H D 08/23/18 06:00 ALT 54 U/L (7-56) 08/23/18 06:00 Alkaline Phosphatase 60 U/L (38-126) 08/23/18 06:00 Total Creatine Kinase 105 U/L (35-230) 08/21/18 18:00 Total Protein 7.3 g/dL (5.8-8.3) 08/23/18 06:00 Albumin 3.9 g/dL (3.0-4.8) 08/23/18 06:00 Globulin 3.4 gm/dL 08/23/18 06:00 Albumin/Globulin Ratio 1.1 (1.1-1.8) 08/23/18 06:00 Triglycerides 43 mg/dL (35-160) 08/22/18 06:20 Cholesterol 132 mg/dL (130-200) 08/22/18 06:20 LDL Cholesterol Direct 101 mg/dL (0-129) 08/22/18 06:20 HDL Cholesterol 21 mg/dL (29-60) L 08/22/18 06:20 TSH 3rd Generation 1.69 mIU/mL (0.46-4.68) 08/21/18 18:00 Urine Color Yellow (YELLOW) 08/21/18 14:30 Urine Appearance Clear (CLEAR) 08/21/18 14:30 Urine pH 6.5 (4.7-8.0) 08/21/18 14:30 Ur Specific Elmore 1.025 (1.005-1.035) 08/21/18 14:30 Urine Protein Trace mg/dL (<30 mg/dL) H 08/21/18 14:30 Urine Glucose (UA) Negative mg/dL (NEGATIVE) 08/21/18 14:30 Urine Ketones Negative mg/dL (NEGATIVE) 08/21/18 14:30 Urine Blood Negative (NEGATIVE) 08/21/18 14:30 Urine Nitrate Negative (NEGATIVE) 08/21/18 14:30 Urine Bilirubin Negative (NEGATIVE) 08/21/18 14:30 Urine Urobilinogen 0.2 E.U./dL (<1 E.U./dL) 08/21/18 14:30 Ur Leukocyte Esterase Negative Stevan/uL (NEGATIVE) 08/21/18 14:30 Urine RBC None /hpf (0-2) 08/21/18 14:30 Urine WBC 0 - 2 /hpf (0-6) 08/21/18 14:30 Ur Epithelial Cells None /hpf (0-5) 08/21/18 14:30 Urine Bacteria Few /hpf (NONE) 08/21/18 14:30 Urine Opiates Screen Negative (NEGATIVE) 08/21/18 14:30 Urine Methadone Screen Negative (NEGATIVE) 08/21/18 14:30 Ur Barbiturates Screen Negative (NEGATIVE) 08/21/18 14:30 Ur Phencyclidine Scrn Negative (NEGATIVE) 08/21/18 14:30 Ur Amphetamines Screen Negative (NEGATIVE) 08/21/18 14:30 U Benzodiazepines Scrn Negative (NEGATIVE) 08/21/18 14:30 U Oth Cocaine Metabols Negative (NEGATIVE) 08/21/18 14:30 U Cannabinoids Screen Positive (NEGATIVE) H 08/21/18 14:30 Alcohol, Quantitative < 10 mg/dL (0-10) 08/21/18 18:00 - Hospital Course Hospital Course: Nehemiah Hammond DO, PGY-1 Hospitalist Discharge Summary for Dr. Delacruz Prior to admission: Patient is a 38 year old male with no significant PMH who presented to ED with a chief complaint of recent seizure. History was obtained from medical records and at bedside as patient was altered on initial presentation. In the afternoon prior to presentation, patient was noted to have tonic movements before falling backwards and losing consciousness. Upon regaining consciousness, he exhibited post-ictal confusion and slurred speech. He had another seizure of same nature before being brought to ED. In the ED, patient had a third seizure and was given 4 mg Ativan and 1 gram of Keppra. He has no previous history of seizures and does not take any medications at home. Last followup with PMD was a year prior and there were no medical concerns reported at that time. Patient was subsequently admitted for management of seizures. Hospitalization course: Head CT was completed which showed no acute changes. Brain MRI was completed and was read as normal. Screening EEG was completed and read as normal. 24-hr video EEG was completed and reviewed by Dr. Gonzales. He had no additional seizure activity since admission. He was instructed to continue Keppra 500 mg BID and to f/u with PMD and Dr. Gonzales outpatient. Case was discussed with Dr. Gonzales who agrees with discharge plan. Discharge plan was discussed with patient in detail. Medications were delivered at bedside prior to patient's discharge. All questions were answered. Patient seen, examined, and discharge plan discussed with my attending Dr. Jayme Hammond D.O. IM Resident PGY-1 Discharge Exam - Head Exam Head Exam: ATRAUMATIC, NORMOCEPHALIC - Eye Exam Eye Exam: EOMI, PERRL - ENT Exam ENT Exam: Mucous Membranes Moist - Neck Exam Neck exam: Full Rom, Normal Inspection - Respiratory Exam Respiratory Exam: Clear to PA & Lateral, NORMAL BREATHING PATTERN, UNREMARKABLE. absent: Rales, Rhonchi, Wheezes - Cardiovascular Exam Cardiovascular Exam: REGULAR RHYTHM, RRR, +S1, +S2. absent: Diastolic murmur, Gallop, Rubs, Systolic Murmur - GI/Abdominal Exam GI & Abdominal Exam: Normal Bowel Sounds, Soft, Unremarkable. absent: Tenderness - Extremities Exam Extremities exam: full ROM, normal inspection - Back Exam Back exam: NORMAL INSPECTION - Neurological Exam Neurological exam: Alert, Normal Gait, Oriented x3 - Psychiatric Exam Psychiatric exam: Normal Affect, Normal Mood - Skin Skin Exam: Dry, Intact, Warm Discharge Plan - Discharge Medications Prescriptions: Levetiracetam 500 mg PO BID #60 tablet - Follow Up Plan Condition: FAIR Disposition: HOME/ ROUTINE Instructions: Quitting Smoking, Seizures, Levetiracetam, Marijuana Use and Addiction (DC) Additional Instructions: Please follow up with your PMD at [facility] in 3-5 days for follow up. Please follow up with your neurologist (Dr. Gonzales) next week. Please do not drive or operate heavy machinery until you are cleared to do so by Dr. Gonzales. Please take all medications as prescribed, including your new medication called Keppra which you will take twice per day. Please stop using all illegal drugs as discussed. Please seek emergency medical attention at your nearest ER should your symptoms return. Due to seizure activity; NO DRIVING or operating machinery. Diet: Heart Healthy Diet Patient refuses the flu and the pneumococcal vaccines. Referrals: [facility] [Provider Group] Gunnar Gonzales MD [Staff Provider] - <João Delacruz - Last Filed: 08/23/18 14:33> Provider - Provider Date of Admission: 08/21/18 15:50 Attending physician: João Delacruz MD Consults: 08/21/18 16:59 Neurology Consult Routine Comment: Consulting Provider: Gunnar Gonzales Consulting Physician: Gunnar Gonzales Reason for Consult: new onset seizures 08/21/18 22:51 Nursing Referral for Wound Care Routine Comment: Physician Instructions: Reason For Exam: EVALUATION Hospital Course - Lab Results Lab Results: Most Recent Lab Values WBC 7.1 10^3/uL (4.5-11.0) D 08/23/18 06:00 RBC 4.13 10^6/uL (3.5-6.1) 08/23/18 06:00 Hgb 12.9 g/dL (14.0-18.0) L 08/23/18 06:00 Hct 38.8 % (42.0-52.0) L 08/23/18 06:00 MCV 93.9 fl (80.0-105.0) 08/23/18 06:00 MCH 31.2 pg (25.0-35.0) 08/23/18 06:00 MCHC 33.2 g/dl (31.0-37.0) 08/23/18 06:00 RDW 12.8 % (11.5-14.5) 08/23/18 06:00 Plt Count 227 10^3/uL (120.0-450.0) 08/23/18 06:00 MPV 9.9 fl (7.0-11.0) 08/23/18 06:00 Neut % (Auto) 56.3 % (50.0-68.0) 08/23/18 06:00 Lymph % (Auto) 24.1 % (22.0-35.0) 08/23/18 06:00 Nuckolls % (Auto) 16.5 % (1.0-6.0) H 08/23/18 06:00 Eos % (Auto) 2.8 % (1.5-5.0) 08/23/18 06:00 Baso % (Auto) 0.3 % (0.0-3.0) 08/23/18 06:00 Lymph # (Auto) 1.7 (1.2-3.4) 08/23/18 06:00 Nuckolls # (Auto) 1.2 (0.1-0.6) H 08/23/18 06:00 Eos # (Auto) 0.2 (0.0-0.7) 08/23/18 06:00 Baso # (Auto) 0.02 K/mm3 (0.0-2.0) 08/23/18 06:00 Absolute Neuts (auto) 3.99 (1.4-6.5) 08/23/18 06:00 Sodium 140 mmol/L (132-148) 08/23/18 06:00 Potassium 4.2 mmol/L (3.6-5.0) 08/23/18 06:00 Chloride 107 mmol/L (98-107) 08/23/18 06:00 Carbon Dioxide 28 mmol/L (21-33) 08/23/18 06:00 Anion Gap 9 (10-20) L 08/23/18 06:00 BUN 12 mg/dL (7-21) 08/23/18 06:00 Creatinine 0.8 mg/dl (0.8-1.5) 08/23/18 06:00 Est GFR ( Amer) > 60 08/23/18 06:00 Est GFR (Non-Af Amer) > 60 08/23/18 06:00 POC Glucose (mg/dL) 154 mg/dL (65-110) H 08/21/18 13:32 Random Glucose 97 mg/dL (70-110) 08/23/18 06:00 Hemoglobin A1c 5.8 % (4.2-6.5) 08/21/18 18:00 Calcium 9.2 mg/dL (8.4-10.5) 08/23/18 06:00 Phosphorus 3.2 mg/dL (2.5-4.5) 08/23/18 06:00 Magnesium 2.0 mg/dL (1.7-2.2) 08/23/18 06:00 Total Bilirubin 0.7 mg/dL (0.2-1.3) 08/23/18 06:00 AST 67 U/L (17-59) H D 08/23/18 06:00 ALT 54 U/L (7-56) 08/23/18 06:00 Alkaline Phosphatase 60 U/L (38-126) 08/23/18 06:00 Total Creatine Kinase 105 U/L (35-230) 08/21/18 18:00 Total Protein 7.3 g/dL (5.8-8.3) 08/23/18 06:00 Albumin 3.9 g/dL (3.0-4.8) 08/23/18 06:00 Globulin 3.4 gm/dL 08/23/18 06:00 Albumin/Globulin Ratio 1.1 (1.1-1.8) 08/23/18 06:00 Triglycerides 43 mg/dL (35-160) 08/22/18 06:20 Cholesterol 132 mg/dL (130-200) 08/22/18 06:20 LDL Cholesterol Direct 101 mg/dL (0-129) 08/22/18 06:20 HDL Cholesterol 21 mg/dL (29-60) L 08/22/18 06:20 TSH 3rd Generation 1.69 mIU/mL (0.46-4.68) 08/21/18 18:00 Urine Color Yellow (YELLOW) 08/21/18 14:30 Urine Appearance Clear (CLEAR) 08/21/18 14:30 Urine pH 6.5 (4.7-8.0) 08/21/18 14:30 Ur Specific Elmore 1.025 (1.005-1.035) 08/21/18 14:30 Urine Protein Trace mg/dL (<30 mg/dL) H 08/21/18 14:30 Urine Glucose (UA) Negative mg/dL (NEGATIVE) 08/21/18 14:30 Urine Ketones Negative mg/dL (NEGATIVE) 08/21/18 14:30 Urine Blood Negative (NEGATIVE) 08/21/18 14:30 Urine Nitrate Negative (NEGATIVE) 08/21/18 14:30 Urine Bilirubin Negative (NEGATIVE) 08/21/18 14:30 Urine Urobilinogen 0.2 E.U./dL (<1 E.U./dL) 08/21/18 14:30 Ur Leukocyte Esterase Negative Stevan/uL (NEGATIVE) 08/21/18 14:30 Urine RBC None /hpf (0-2) 08/21/18 14:30 Urine WBC 0 - 2 /hpf (0-6) 08/21/18 14:30 Ur Epithelial Cells None /hpf (0-5) 08/21/18 14:30 Urine Bacteria Few /hpf (NONE) 08/21/18 14:30 Urine Opiates Screen Negative (NEGATIVE) 08/21/18 14:30 Urine Methadone Screen Negative (NEGATIVE) 08/21/18 14:30 Ur Barbiturates Screen Negative (NEGATIVE) 08/21/18 14:30 Ur Phencyclidine Scrn Negative (NEGATIVE) 08/21/18 14:30 Ur Amphetamines Screen Negative (NEGATIVE) 08/21/18 14:30 U Benzodiazepines Scrn Negative (NEGATIVE) 08/21/18 14:30 U Oth Cocaine Metabols Negative (NEGATIVE) 08/21/18 14:30 U Cannabinoids Screen Positive (NEGATIVE) H 08/21/18 14:30 Alcohol, Quantitative < 10 mg/dL (0-10) 08/21/18 18:00 Attending/Attestation - Attestation I have personally seen and examined this patient.: Yes I have fully participated in the care of the patient.: Yes I have reviewed all pertinent clinical information, including history, physical exam and plan: Yes Notes (Text): 08/23/18 14:30 Attending note; Patient seen and examined with resident. Alert and awake. no seizures since admission. Patient is a 38 year old male with no significant past medical history presenting with chief complaint of seizures. History was obtained from medical records and at bedside due to patient's altered mental status. 1. Seizures; Currently seizure free. Currently on Keppra. CT head is negative. MRI of the brain is negative. 2. Urine drug screen is positive for marijuana. drug Abuse cessation is strongly advised. 3. Neurology Evaluation appreciated. EEG Showed no abnormal waves. Patient will be discharged home today. Follow-up with urology in 1 week. Avoid driving or operating heavy machines. discharge home today. Upon discharge the patient will follow up with PMD at [facility].
--- NOTE | 2018-08-25 10:07 | CON ---
DATE: NEUROLOGY CONSULT CALLED BY: Dr. loza, ER physician. HISTORY OF PRESENT ILLNESS: The patient is a 38-year-old male with no past medical history who presented on 08/21/2018 with two generalized tonic-clonic seizures. The second seizure was witnessed by nurses and ER physician in [facility] ER. The seizures were described as confusion followed by generalized tonic-clonic activity. These look similar that the way reported at home. There is no history of motor vehicle accident, head trauma, prior stroke, prior hemorrhage, Xanax use, alcohol use, or drug use. Of note, the patient does smoke marijuana daily. On examination in the ER, the patient was quite sedated. He was unable to respond to normal commands and had received several doses of Ativan at that point. CAT scan has been done and is normal. The patient is loaded with 1000 mg of Keppra. MRI of the brain with contrast is ordered. REVIEW OF SYSTEMS: Not obtained due to the patient's mental status. PAST MEDICAL HISTORY: As above. PAST SURGICAL HISTORY: None. FAMILY HISTORY AND SOCIAL HISTORY: Regular marijuana use. ALLERGIES: NO KNOWN DRUG ALLERGIES. PHYSICAL EXAMINATION: GENERAL: The exam that I was able to obtain without the patient participating, he is awake but he is not alert. He is not following commands secondary to medications. HEENT: Extraocular movements were intact. There is no facial asymmetry. EXTREMITIES: He moves all extremities equally and withdraws equally as well. Sensory exam is not able to be done. Gait is not able to be examined. Reflexes are +2 in upper and lower limbs bilaterally. There is no facial asymmetry. LABORATORY DATA: As follows; white count 11.3, hemoglobin 40.6. There is no left shift. Chemistry is normal except for glucose which is 154. Total protein 8.7. Urine just shows trace protein. Toxicology is positive for cannabinoids and negative for alcohol or anything else. IMPRESSION: This is a 38-year-old male with new-onset epilepsy that could be some underlying disorder. As of now, we do not have a history of any secondary causes including drugs. We will initiate epilepsy protocol. PLAN: 1. MRI of the brain, epilepsy protocol, with and without contrast. 2. Video EEG. 3. Continue Keppra at 500 mg twice a day. Our team will follow. Thank you for this interesting consult. Gunnar Gonzales MD [facility] # [id number] [place]
== END 2018-08-23 11:20 | disposition home or self-care (01) | DRG 890 ==
LOC: ED 13:19 → ERH 15:50 → 2RNO 20:17
PROVIDERS: ADMIT Internal Medicine; ATTEND Internal Medicine
DX: G40.409 Other generalized epilepsy and epileptic syndromes, not intractable, without status epilepticus (principal); F12.10 Cannabis abuse, uncomplicated; M54.5 Low back pain